=== PATIENT | male | born 1975 | race Caucasian/White ===

== ENCOUNTER 2021-08-26 09:12 | Inpatient (IN) ==
[2021-08-26] MEDS ORDERED: SODIUM CHLORIDE 0.9% 1000ML 1,000 ML IV STA (09:43)
--- NOTE | 2021-08-26 09:48 | Emergency Department Note ---
History of Present Illness General Chief complaint: Referred by Doctor Stated complaint: ABNORMAL BLOOD TEST, ACUTE KIDNEY INJURY Time Seen by Provider: 08/26/21 09:27 Source: patient and old records reviewed (Did review the patient's labs on his phone from his portal from his hospital) Mode of arrival: ambulatory Limitations: no limitations History of Present Illness Maximum Pain Intensity: 4 This patient is a 46-year-old male who has a complex medical history including non-Hodgkin's lymphoma, alcoholism and V. tach, comes in after having an elevated creatinine. He says his he has been in remission from his non- Hodgkin's lymphoma since 1986 and he is on chronic testosterone as I did apparently metastasized to his testes at the time. He had 1 episode of V. tach while he was on chemo but none since then. He does have history of alcohol abuse and went into rehab is been sober for 8 months and denies any relapses. He has multiple specialists and has seen them recently he was diagnosed with liver fibrosis which I think is from radiation he has had a relatively recent upper and lower endoscopy which she says showed benign tumors were otherwise was okay he saw his doctors this week and got routine blood work on Monday and got a call and was told to come to the emergency department. On his blood work his BUN was 29 his creatinine was 2.16 which was up from 1.08 in April. His potassium was 4.9, his sodium was 134 and his CO2 was 31 with a glucose of 97. Total bilirubin 0.4, AST 38, ALT 49. Hemoglobin was 14.5 with a white count of 7.5 and platelets were normal at 275. CK was 420. His iron was low at 9. His ammonia was 55. He denies any headache. He has no chest pain or shortness of breath or cough he feels dizzy at times more like a lightheadedness he says no vertigo or syncope. He is some low back pain and abdominal bloating at times which seems to be off-and-on for him. No blood or melena in his stool. Home Medications Medication Instructions Recorded Confirmed Type clonidine HCl 0.1 mg tablet 0.1 mg PO BID PRN 08/26/21 08/26/21 History desvenlafaxine succinate 25 mg 25 mg PO DAILY 08/26/21 08/26/21 History tablet,extended release 24 hr dextroamphetamine-amphetamine ER 20 mg PO DAILY PRN 08/26/21 08/26/21 History 20 mg 24hr capsule,extend release dextroamphetamine-amphetamine ER 30 mg PO DAILY 08/26/21 08/26/21 History 30 mg 24hr capsule,extend release ergocalciferol (vitamin D2) 1,250 1,250 mcg PO WK 08/26/21 08/26/21 History mcg (50,000 unit) capsule (Vitamin D2) evolocumab 140 mg/mL subcutaneous 140 mg SUBCUT DIRECTED 08/26/21 08/26/21 History pen injector (Jose Francisco Cortes) hydroxyzine HCl 25 mg tablet 25 mg PO TID PRN 08/26/21 08/26/21 History lorazepam 1 mg tablet 1 mg PO DAILY PRN 08/26/21 08/26/21 History losartan 100 mg tablet 100 mg PO DAILY 08/26/21 08/26/21 History meloxicam 15 mg tablet 15 mg PO DAILY 08/26/21 08/26/21 History nebivolol 10 mg tablet (Bystolic) 10 mg PO BID 08/26/21 08/26/21 History rifaximin 550 mg tablet (Xifaxan) 550 mg PO BID 08/26/21 08/26/21 History sulfamethoxazole 800 1 tab PO BID 08/26/21 08/26/21 History mg-trimethoprim 160 mg tablet testosterone 1 % (50 mg/5 gram) 3 packet TOPICAL DAILY 08/26/21 08/26/21 History transdermal gel packet trazodone 100 mg tablet 100 mg PO HS 08/26/21 08/26/21 History Allergies Allergy/AdvReac Type Severity Reaction Status Date / Time No Known Allergies Allergy Verified 08/26/21 14:44 Past Med/Surg History Medical History ADHD Anxiety HLD (hyperlipidemia) HTN (hypertension) Liver fibrosis Low testosterone in male due to radiation for treatment of non-Hodgkin lymphoma Non-Hodgkin lymphoma in remission FRANCO on CPAP Prediabetes Surgical History History of colonoscopy History of elbow surgery History of esophagogastroduodenoscopy Family History Father Pancreatitis Social History Smoking Status: Never smoker Hx Alcohol Use: No Hx Substance Use: No Preferred Language: Mongolian Physician Office Assistant Required: No Beliefs That Will Affect Care: None Current Living Situation: Family Feels Safe at Home: Yes Safety Concerns: Feels Safe At This Time Assistive Devices: CPAP and Glasses Immunizations: Past medical historynon-Hodgkin's lymphoma, in remission since 1986, V. tach, alcoholism in remission for 8 months. Liver fibrosis. Social history he lives in [facility] he is here for work. Review of Systems A total of 10 systems reviewed and were otherwise negative Physical Exam Vital Signs Vital Signs - 24 hr 08/26/21 09:14 08/26/21 09:43 08/26/21 10:14 Temperature 36.3 C L Temperature Source Temporal Artery Scan Pulse Rate 85 78 Pulse Rate from SpO2 Sensor 79 Respiratory Rate 14 14 Blood Pressure 92/58 L Blood Pressure Mean 69 Pulse Oximetry 96 99 94 Oxygen Delivery Method Room Air Room Air Sepsis Recent Fever Within 48 Hours No Sepsis New/Unexplained Change in Mental Status No Sepsis Action Taken by Nursing No Action Required 08/26/21 10:24 08/26/21 10:30 08/26/21 10:40 Temperature Temperature Source Pulse Rate 84 80 76 Pulse Rate from SpO2 Sensor 84 78 Respiratory Rate 19 18 15 Blood Pressure Blood Pressure Mean Pulse Oximetry 97 96 95 Oxygen Delivery Method Sepsis Recent Fever Within 48 Hours Sepsis New/Unexplained Change in Mental Status Sepsis Action Taken by Nursing 08/26/21 10:50 08/26/21 11:00 08/26/21 11:10 Temperature Temperature Source Pulse Rate 79 80 82 Pulse Rate from SpO2 Sensor 79 80 82 Respiratory Rate 17 20 19 Blood Pressure 97/55 L Blood Pressure Mean 69 Pulse Oximetry 94 98 96 Oxygen Delivery Method Sepsis Recent Fever Within 48 Hours Sepsis New/Unexplained Change in Mental Status Sepsis Action Taken by Nursing 08/26/21 11:20 Temperature Temperature Source Pulse Rate 83 Pulse Rate from SpO2 Sensor 84 Respiratory Rate 14 Blood Pressure Blood Pressure Mean Pulse Oximetry 98 Oxygen Delivery Method Sepsis Recent Fever Within 48 Hours Sepsis New/Unexplained Change in Mental Status Sepsis Action Taken by Nursing General: Well developed well nourished not ill-appearing nontoxic middle-age male who appears in no acute distress, breathing comfortably on room air. Normal speech HEENT: Normal cephalic atraumatic. Pupils are equal round and reactive to light. Extraocular movements are intact. Oropharynx is pink with moist mucous membranes. No swelling of the mouth lips or tongue. Neck: Supple with a midline trachea. No meningeal signs or stiffness, no JVD or bruits. No Stridor. Chest: Clear to auscultation bilaterally. No wheezes or rhonchi. No increased work of breathing. Heart: Regular rate and rhythm without murmurs or gallops. Abdomen: Soft nontender, nondistended without rebound guarding or rigidity. Extremities: No cyanosis clubbing or edema. No calf tenderness or assymetry Spine/Back. Non tender to palpation. No CVA tenderness Skin: Good turgor without rashes. Neurologic exam: Cranial nerves two through 12 are intact. Motor and sensation are intact and symmetrical throughout. Course Administered Medications Acetaminophen (Acetaminophen 325 Mg Tab) 650 mg PO Q4H PRN PRN Reason: pain/fever Stop: 09/25/21 14:22 Last Admin: 08/26/21 16:08 Dose: 650 mg Documented by: [id number] Sodium Chloride (Nss 1000ml) 1,000 mls @ 125 mls/hr IV .Q8H CHECO Stop: 09/25/21 11:44 Last Admin: 08/26/21 13:03 Dose: 125 mls/hr Documented by: [id number] Miscellaneous (Testosterone~Order Awaiting Action) 1 ea N/A QS CHECO Stop: 09/25/21 15:59 Last Admin: 08/26/21 15:19 Dose: Not Given Documented by: [id number] Discontinued Medications Sodium Chloride (Nss 1000ml) 1,000 mls @ 999 mls/hr IV .Q1H1M STA Stop: 08/26/21 10:43 Last Infusion: 08/26/21 14:25 Dose: 0 mls/hr Documented by: [id number] Admin: 08/26/21 10:11 Dose: 999 mls/hr Documented by: [id number] Miscellaneous Information (Patient's Allergy Info Needs Entered) 1 ea N/A ONE STA Stop: 08/26/21 14:39 Last Admin: 08/26/21 14:45 Dose: 1 ea Documented by: [id number] Medical Decision Making Differential Diagnosis Renal disease, dehydration, obstructive uropathy, complication from non- Hodgkin's lymphoma or treatment, arrhythmia, electrolyte or metabolic abnormality, infection, liver disease, medication side effect Medical Records Attestation: I reviewed the patient's medical records. Home Medications Current Medication List: was personally reviewed by me Laboratory Data Attestation: I reviewed the patient's lab results. Result diagrams: 08/26/21 10:03 08/26/21 10:03 Lab Results 08/26/21 08/26/21 08/26/21 Range/Units 10:03 10:03 10:03 WBC 8.67 (4.8-10.8) K/uL RBC 5.02 (4.7-6.1) M/uL Hgb 14.3 (14.0-18.0) g/dL Hct 43.4 (42-52) % MCV 86.5 (80-100) fL MCH 28.5 (25-34) pg MCHC 32.9 (32-36) g/dL RDW Std Deviation 44.3 (36.4-46.3) fL RDW Coeff of Roopa 14.0 (11.5-14.5) % Plt Count 281 (130-400) K/uL MPV 8.5 (7.4-10.4) fL Immature Gran % (Auto) 0.1 % Neut % (Auto) 54.9 % Lymph % (Auto) 32.3 % [place] % (Auto) 10.7 % Eos % (Auto) 1.7 % Baso % (Auto) 0.3 % Neut # (Auto) 4.75 (1.4-6.5) K/uL Lymph # (Auto) 2.80 (1.2-3.4) K/uL [place] # (Auto) 0.93 H (0.11-0.59) K/uL Eos # (Auto) 0.15 (0-0.5) K/uL Baso # (Auto) 0.03 (0-0.2) K/uL Immature Gran # (Auto) 0.01 (0.00-0.02) K/uL PT (9.0-12.0) Seconds INR (0.9-1.1) APTT (21.0-31.0) Seconds PTT Ratio Sodium 134 L (136-145) mmol/L Potassium 5.1 (3.5-5.1) mmol/L Chloride 98 (98-107) mmol/L Carbon Dioxide 29 (21-32) mmol/L Anion Gap 7 (3-11) BUN 34 H (6-23) mg/dl Creatinine 2.97 H (0.6-1.4) mg/dl Est Cr Clr Drug Dosing 36.2 ml/min Est GFR ( Amer) 28.3 ml/min Est GFR (Non-Af Amer) 24.4 ml/min BUN/Creatinine Ratio 11.4 (10-20) Glucose 91 (70-99(Fasting)) mg/dl Lactate 1.0 (0.4-2.0) mmol/L Calcium 9.5 (8.5-10.1) mg/dl Total Bilirubin 0.4 (0.2-1.0) mg/dl AST 37 (13-39) U/L ALT 43 (7-52) U/L Alkaline Phosphatase 31 L (34-104) U/L Ammonia (18-72) umol/L Total Creatine Kinase 298 H (30-223) U/L Troponin I High Sens 7.7 (0-20) pg/ml Total Protein 7.2 (6.0-8.3) gm/dl Albumin 4.6 (3.4-5.0) gm/dl Globulin 2.6 (2.5-4.0) gm/dl Albumin/Globulin Ratio 1.8 (0.9-2) Lipase 72 (11-82) U/L Procalcitonin (0-0.5) ng/ml Urine Color Urine Appearance (Clear) Urine pH (4.5-7.5) Ur Specific [place] (1.000-1.030) Urine Protein (Negative) Urine Glucose (UA) (Negative) Urine Ketones (Negative) Urine Blood (Negative) Urine Nitrite (Negative) Urine Bilirubin (Negative) Urine Urobilinogen (Negative) Ur Leukocyte Esterase (Negative) Urine WBC (Auto) (0-5) /hpf Urine RBC (Auto) (0-4) /hpf U Hyaline Cast (Auto) (0-5) /lpf U Epithel Cells (Auto) (0-5) /lpf Urine Bacteria (Auto) (Negative) Ur Renal Epithelial Cell Urine Mucus (None Prsent) SARS-CoV-2, RNA, NAAT (NEGATIVE) 06/16/22 06/16/22 06/16/22 Range/Units 10:03 10:03 10:03 WBC (4.8-10.8) K/uL RBC (4.7-6.1) M/uL Hgb (14.0-18.0) g/dL Hct (42-52) % MCV (80-100) fL MCH (25-34) pg MCHC (32-36) g/dL RDW Std Deviation (36.4-46.3) fL RDW Coeff of Roopa (11.5-14.5) % Plt Count (130-400) K/uL MPV (7.4-10.4) fL Immature Gran % (Auto) % Neut % (Auto) % Lymph % (Auto) % [place] % (Auto) % Eos % (Auto) % Baso % (Auto) % Neut # (Auto) (1.4-6.5) K/uL Lymph # (Auto) (1.2-3.4) K/uL [place] # (Auto) (0.11-0.59) K/uL Eos # (Auto) (0-0.5) K/uL Baso # (Auto) (0-0.2) K/uL Immature Gran # (Auto) (0.00-0.02) K/uL PT 10.7 (9.0-12.0) Seconds INR 1.0 (0.9-1.1) APTT 29.4 (21.0-31.0) Seconds PTT Ratio 1.1 Sodium (136-145) mmol/L Potassium (3.5-5.1) mmol/L Chloride (98-107) mmol/L Carbon Dioxide (21-32) mmol/L Anion Gap (3-11) BUN (6-23) mg/dl Creatinine (0.6-1.4) mg/dl Est Cr Clr Drug Dosing ml/min Est GFR ( Amer) ml/min Est GFR (Non-Af Amer) ml/min BUN/Creatinine Ratio (10-20) Glucose (70-99(Fasting)) mg/dl Lactate (0.4-2.0) mmol/L Calcium (8.5-10.1) mg/dl Total Bilirubin (0.2-1.0) mg/dl AST (13-39) U/L ALT (7-52) U/L Alkaline Phosphatase (34-104) U/L Ammonia 43.0 (18-72) umol/L Total Creatine Kinase (30-223) U/L Troponin I High Sens (0-20) pg/ml Total Protein (6.0-8.3) gm/dl Albumin (3.4-5.0) gm/dl Globulin (2.5-4.0) gm/dl Albumin/Globulin Ratio (0.9-2) Lipase (11-82) U/L Procalcitonin 0.06 (0-0.5) ng/ml Urine Color Urine Appearance (Clear) Urine pH (4.5-7.5) Ur Specific [place] (1.000-1.030) Urine Protein (Negative) Urine Glucose (UA) (Negative) Urine Ketones (Negative) Urine Blood (Negative) Urine Nitrite (Negative) Urine Bilirubin (Negative) Urine Urobilinogen (Negative) Ur Leukocyte Esterase (Negative) Urine WBC (Auto) (0-5) /hpf Urine RBC (Auto) (0-4) /hpf U Hyaline Cast (Auto) (0-5) /lpf U Epithel Cells (Auto) (0-5) /lpf Urine Bacteria (Auto) (Negative) Ur Renal Epithelial Cell Urine Mucus (None Prsent) SARS-CoV-2, RNA, NAAT (NEGATIVE) 08/26/21 08/26/21 Range/Units 10:06 11:18 WBC (4.8-10.8) K/uL RBC (4.7-6.1) M/uL Hgb (14.0-18.0) g/dL Hct (42-52) % MCV (80-100) fL MCH (25-34) pg MCHC (32-36) g/dL RDW Std Deviation (36.4-46.3) fL RDW Coeff of Roopa (11.5-14.5) % Plt Count (130-400) K/uL MPV (7.4-10.4) fL Immature Gran % (Auto) % Neut % (Auto) % Lymph % (Auto) % [place] % (Auto) % Eos % (Auto) % Baso % (Auto) % Neut # (Auto) (1.4-6.5) K/uL Lymph # (Auto) (1.2-3.4) K/uL [place] # (Auto) (0.11-0.59) K/uL Eos # (Auto) (0-0.5) K/uL Baso # (Auto) (0-0.2) K/uL Immature Gran # (Auto) (0.00-0.02) K/uL PT (9.0-12.0) Seconds INR (0.9-1.1) APTT (21.0-31.0) Seconds PTT Ratio Sodium (136-145) mmol/L Potassium (3.5-5.1) mmol/L Chloride (98-107) mmol/L Carbon Dioxide (21-32) mmol/L Anion Gap (3-11) BUN (6-23) mg/dl Creatinine (0.6-1.4) mg/dl Est Cr Clr Drug Dosing ml/min Est GFR ( Amer) ml/min Est GFR (Non-Af Amer) ml/min BUN/Creatinine Ratio (10-20) Glucose (70-99(Fasting)) mg/dl Lactate (0.4-2.0) mmol/L Calcium (8.5-10.1) mg/dl Total Bilirubin (0.2-1.0) mg/dl AST (13-39) U/L ALT (7-52) U/L Alkaline Phosphatase (34-104) U/L Ammonia (18-72) umol/L Total Creatine Kinase (30-223) U/L Troponin I High Sens (0-20) pg/ml Total Protein (6.0-8.3) gm/dl Albumin (3.4-5.0) gm/dl Globulin (2.5-4.0) gm/dl Albumin/Globulin Ratio (0.9-2) Lipase (11-82) U/L Procalcitonin (0-0.5) ng/ml Urine Color Dark Yellow Urine Appearance Cloudy A (Clear) Urine pH 5.0 (4.5-7.5) Ur Specific [place] 1.019 (1.000-1.030) Urine Protein 2+ H (Negative) Urine Glucose (UA) Negative (Negative) Urine Ketones Trace H (Negative) Urine Blood Negative (Negative) Urine Nitrite Negative (Negative) Urine Bilirubin Negative (Negative) Urine Urobilinogen Negative (Negative) Ur Leukocyte Esterase Trace H (Negative) Urine WBC (Auto) 10-30 H (0-5) /hpf Urine RBC (Auto) 0-4 (0-4) /hpf U Hyaline Cast (Auto) >30 H (0-5) /lpf U Epithel Cells (Auto) >30 H (0-5) /lpf Urine Bacteria (Auto) 1+ H (Negative) Ur Renal Epithelial Cell Not Reportable Urine Mucus Present A (None Prsent) SARS-CoV-2, RNA, NAAT NEGATIVE (NEGATIVE) Imaging Data Radiologist's Impression: Abdomen/Pelvis CT 08/26/21 09:43 CT OF THE ABDOMEN AND PELVIS WITHOUT CONTRAST CLINICAL HISTORY: Bilateral flank and back pain, creatinine increase COMPARISON STUDY: No previous studies for comparison. TECHNIQUE: Axial images of the abdomen and pelvis were obtained without IV contrast. Images were reviewed in the axial, sagittal, and coronal planes. Automated exposure control was utilized for the study. A dose lowering technique was utilized adhering to the principles of ALARA. FINDINGS: Note is made of several irregular subpleural densities within the ri ght lower lobe. Several of these are partially calcified. The largest measures 1.5 cm. There are several pleural calcifications within the right lower hemithorax. No pneumatosis, free air or portal venous gas is present. No renal, ureteral or bladder calculi are present. No hydronephrosis or hydroureter is noted. There are multiple small bilateral renal lesions. These are suboptimally assessed on this unenhanced exam but measuring water attenuation and probably reflect cysts. Unenhanced images of the liver, spleen, adrenal glands and pancreas are unremarkable. There is a splenule. There is no biliary or pancreatic ductal dilatation. Liver contour is slightly lobulated. Colonic diverticulosis is noted without evidence for acute diverticulitis. There is no evidence for a bowel obstruction. The appendix is normal. Several hemangiomas within the spine are noted. No acute fracture or suspicious lesion within the visualized skeletal structures. Peripherally calcified focus within the right h emiscrotum is partially imaged. This is benign IMPRESSION: 1. No urinary calculi or hydronephrosis. 2. Multiple small bilateral renal lesions. These are suboptimally assessed on this unenhanced exam but measure near water attenuation probably reflect cysts. 3. Multiple subpleural irregular densities within the right lower lobe, several of which are partially calcified. These are indeterminate and favor scarring or a resolving infectious/granulomatous process. However, a follow-up chest CT in 6 months to ensure stability is recommended. 4. Colonic diverticulosis. No evidence for acute diverticulitis. ACT 112: Negative or not required by law. Electronically signed by: Norbert Llamas M.D. 08/26/2021 10:37 AM ECG Data Attestation: I personally reviewed and interpreted this ECG as follows: Indication: + weakness Rate (beats per minute): 74 Rhythm: + normal sinus ECG Intervals/blocks: + Normal QRS, + Normal QT and + Normal CT ECG Marissa: + Normal ECG ST segments: + Nonspecific ST abnormalities ECG Findings: + PACs and + PVCs Comparison ECG Date: no prior available MDM Narrative This patient comes in as described above. He was placed in room C 11. Is here for treatment evaluation of abnormal labs on Monday where he had some renal insufficiency. He says he has been keeping up with his fluids. he looks well his initial blood pressure was mildly low . He was given 1 L IVnormal saline bolus it may be that this is prerenal. The rest of his Monday labs looked okay with exception of a low ferritin. I did order IV access here multiple blood testing EKG and a noncontrast CAT scan of his abdomen to rule out obstructive uropathy and other causes for symptoms. He was reassessed frequently. He looks well and his EKG does not show any ischemic changes or ectopy. CAT scan shows some chronic findings but no acute obstructive uropathy or acute findings. Creatinine is elevated at 2.97 which is up from his last 1. Potassium is not elevated. He has no fever or white count to suggest infection. Addition his l actic acid and procalcitonin are also negative. I do not think this is sepsis and there is certainly no source of infection at this point. His elevated renal function may be related to hydration and prerenal component and may also be related to medications that he is on. There may be other contributing factors. He is also on blood pressure medications and this could be because his blood pressure to be on the low side and he may need to hold these as well. I have consulted the [facility] hospitalist to see him in the ER for inpatient treatment and evaluation. Continuous environmental monitoring technician: Orders placed in the EMR for continuous cardiac monitoring. Upon my interpretation, the patient was noted to be in normal sinus rhythm with a rate of 75 Impression & Plan JASON (acute kidney injury), Liver fibrosis, Non-Hodgkin lymphoma in remission, Hypotension Discharge Plan Visit Data Chief Complaint: Referred by Doctor Stated Complaint: ABNORMAL BLOOD TEST, ACUTE KIDNEY INJURY ED Provider: Felipe Vasquez Discharge Problem: JASON (acute kidney injury), Liver fibrosis, Non-Hodgkin lymphoma in remission, Hypotension Patient Disposition: Admitted As Inpatient Discharge Instructions Interventions: ED Discharge Assessment Last Done: 08/26/21 14:01 Discharge Problem: Hypotension Qualifiers: Hypotension type: unspecified hypotension type Qualified Code(s): I95.9 - Hypotension, unspecified
[2021-08-26 10:30] LABS: Hematocrit (blood only) 43.4 % (42-52); Hemoglobin 14.3 g/dL (14.0-18.0); Mean Corpuscular Hemoglobin 28.5 pg (25-34); Mean Corpuscular Hgb Conc 32.9 g/dL (32-36); Mean Corpuscular Volume 86.5 fL (80-100); Mean Platelet Volume 8.5 fL (7.4-10.4); Platelet Count 281 K/uL (130-400); RDW Standard Deviation 44.3 fL (36.4-46.3); Red Blood Count 5.02 M/uL (4.7-6.1); White Blood Count 8.67 K/uL (4.8-10.8)
[2021-08-26 10:35] LABS: Appearance Urine Cloudy (Clear); Bilirubin Urine Negative (Negative); Blood Urine Negative (Negative); Color Urine Dark Yellow; Epithelial Cell Urine Auto >30 /lpf (0-5); Glucose Urine UA Negative (Negative); Ketones Urine Trace (Negative); Leukocyte Esterase Urine Trace (Negative); Nitrite Urine Negative (Negative); Protein Urine 2+ (Negative); RBC Urine Automated 0-4 /hpf (0-4); Specific Gravity Urine 1.019 (1.000-1.030); Urobilinogen Urine Negative (Negative)
--- NOTE | 2021-08-26 10:39 | CT Scan Report ---
CT OF THE ABDOMEN AND PELVIS WITHOUT CONTRAST CLINICAL HISTORY: Bilateral flank and back pain, creatinine increase COMPARISON STUDY: No previous studies for comparison. TECHNIQUE: Axial images of the abdomen and pelvis were obtained without IV contrast. Images were revi ewed in the axial, sagittal, and coronal planes. Automated exposure control was utilized for the jimbo dy. A dose lowering technique was utilized adhering to the principles of ALARA. FINDINGS: Note is made of several irregular subpleural densities within the right lower lobe. Several of these are partially calcified. The largest measures 1.5 cm. There are several pleural calcificati ons within the right lower hemithorax. No pneumatosis, free air or portal venous gas is present. No r enal, ureteral or bladder calculi are present. No hydronephrosis or hydroureter is noted. There are m ultiple small bilateral renal lesions. These are suboptimally assessed on this unenhanced exam but me asuring water attenuation and probably reflect cysts. Unenhanced images of the liver, spleen, adrenal glands and pancreas are unremarkable. There is a splenule. There is no biliary or pancreatic ductal dilatation. Liver contour is slightly lobulated. Colonic diverticulosis is noted without evidence for acute diverticulitis. There is no evidence for a bowel obstruction. The appendix is normal. Several hemangiomas within the spine are noted. No acute fracture or suspicious lesion within the visualized skeletal structures. Peripherally calcified focus within the right hemiscrotum is partially imaged. T his is benign IMPRESSION: 1. No urinary calculi or hydronephrosis. 2. Multiple small bilateral renal lesions. These are suboptimally assessed on this unenhanced exam bu t measure near water attenuation probably reflect cysts. 3. Multiple subpleural irregular densities within the right lower lobe, several of which are partiall y calcified. These are indeterminate and favor scarring or a resolving infectious/granulomatous proce ss. However, a follow-up chest CT in 6 months to ensure stability is recommended. 4. Colonic diverticulosis. No evidence for acute diverticulitis. ACT 112: Negative or not required by law. Electronically signed by: Norbert Llamas M.D. 08/26/2021 10:37 AM
[2021-08-26 10:43] LABS: Albumin Globulin Ratio 1.8 (0.9-2); Albumin Level 4.6 gm/dl (3.4-5.0); BUN Creatinine Ratio 11.4 (10-20); Bilirubin,Total 0.4 mg/dl (0.2-1.0); Calcium 9.5 mg/dl (8.5-10.1); Creatinine Clr Calc Pharmacy 36.2 ml/min; Est GFR (African American) 28.3 ml/min; Est GFR (Non-African American) 24.4 ml/min; Globulin 2.6 gm/dl (2.5-4.0); Partial Thromboplastin Ratio 1.1; Partial Thromboplastin Time 29.4 Seconds (21.0-31.0); Potassium 5.1 mmol/L (3.5-5.1); Prothrombin Time 10.7 Seconds (9.0-12.0); Total Protein 7.2 gm/dl (6.0-8.3)
[2021-08-26 10:47] LABS: Troponin I High Sensitivity 7.7 pg/ml (0-20)
[2021-08-26 10:53] LABS: Basophils # (auto) 0.03 K/uL (0-0.2); Basophils % (auto) 0.3 %; Eosinophils # (auto) 0.15 K/uL (0-0.5); Eosinophils % (auto) 1.7 %; Immature Granulocytes # (auto) 0.01 K/uL (0.00-0.02); Immature Granulocytes % (auto) 0.1 %; Lymphocytes % (auto) 32.3 %; Monocytes # (auto) 0.93 K/uL (0.11-0.59); Monocytes % (auto) 10.7 %; Neutrophils # (auto) 4.75 K/uL (1.4-6.5); Neutrophils % (auto) 54.9 %
[2021-08-26 11:04] LABS: Cast Urine Automated >30 /lpf (0-5); Mucus Urine Present (None Prsent)
[2021-08-26 11:06] LABS: Bacteria Urine Automated 1+ (Negative)
--- NOTE | 2021-08-26 12:08 | Communication Note ---
Date of Service: August 26, 2021 History and physical exam performed by me. History notable for 46-year-old man with history of NHL treated in remission per patient, liver fibrosis, previous alcohol abuse been sober for 8 months, prediabetes, HTN, HLD who presents to the hospital after called by has doctors to come to the ER for abnormal labs. Patient had blood work done 08/24/2021 and was noted to have creatinine of 2.1. He is currently in the area for work, lives in [facility]. Was called by 's office to go to the ER for abnormal labs. Reports that he started taking Bactrim just over a week ago for some rash that is improving. Review of system notable for dizziness over the past few days. Reports chronic abdominal bloating that increases over the day. On exam, General: Obese, no acute distress and not ill appearing Eyes: PERRL, conjunctivae normal, not pale, anicteric sclerae, EOM intact bilaterally ENMT: External ear and nose normal, oropharynx normal Respiratory: Normal respiratory effort, no respiratory distress, lungs clear to auscultation, no crackles and no wheezes Cardiovascular: RRR S1 S2 Gastrointestinal (Abdomen): Abdomen is mildly distended, soft, non-tender to palpation, no guarding, no palpable hepatosplenomegaly, normal bowel sounds Musculoskeletal: No cyanosis or clubbing, all extremities motor strength 5/5 Genitourinary: No CVA tenderness Skin: Few erythematous rash on legs Neurologic: Alert and oriented x 3, No focal weakness, sensation grossly intact Psychiatric: Alert and oriented x 3, euthymic affect, no depressed affect Labs notable for creatinine of 2.97 (was 1 in 04/2021 per records on patient's phone), CK of 298, Acute kidney injury Hypotension JASON could be related to hypotension versus falsely elevated creatinine from Bactrim use. Hold losartan antihypertensive as patient is currently hypotensive Stop Bactrim Continue IV fluids Monitor renal function If renal function does not improve, get lodge attendant evaluation. Continue other home meds including rifaximin Agree with other plans as detailed by Elise MORENO
--- NOTE | 2021-08-26 12:13 | History & Physical Report ---
Date of Service August 26, 2021 Assessment & Plan (1) JASON (acute kidney injury): Plan: Admit to [facility] with telemetry Patient presenting by referral of outpatient provider for evaluation of abnormal renal functions. Patient is from the [place] area and is visiting here for work. In the ED, creatinine found to be 2.97. Patient shared his patient portal with us and showed creatinine 2.16 on 08/24/21 and creatinine 1.0 04/2021 JASON likely due to multiple nephrotoxic medications (Bactrim, meloxicam, losartan). Patient also noted to be hypotensive which may be contributing to JASON as well. Hold above mentioned medications, continue IVF Monitor renal functions, low threshold for nephrology consult if not improving (2) HTN (hypertension): Plan: Patient currently borderline hypotensive with SBP's in the 90s Hold home antihypertensives (clonidine, Bystolic, losartan) (3) Liver fibrosis: Plan: History of alcohol abuse, has been sober for 8 months Was told liver fibrosis was due to alcohol use and also previous radiation for treatment of non-Hodgkin's lymphoma Continue Xifaxan (4) HLD (hyperlipidemia): Plan: On Repatha (5) Non-Hodgkin lymphoma in remission: Plan: Remote history of, in remission History of testicular involvement, on testosterone replacement (6) FRANCO on CPAP: Plan: CPAP as per home settings (7) ADHD: (8) Anxiety: Plan: Continue home meds (9) DVT prophylaxis: Plan: SCDs History of Present Illness Chief Complaint: Referred by doctor for abnormal kidney functions Primary Care Provider: Avila Sanford 46 year old male with PMH remote hx non Hodgkin lymphoma s/p chemo radiation, prior alochol abuse (sober for 8 months), HTN, liver fibrosis, ADHD, anxiety, and other problems listed below who presents to the ED by referral of his doctor for evaluation of abnormal kidney function. Patient lives in the [place] area and is visiting [place] for work. He states that he had outpatient blood work done on 08/24 and received a phone call today to come to the ED for evaluation of abnormal kidney functions. 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 Over the past few days patient notes he has been very thirsty and has been having intermittent lightheadedness. Patient also notes some constipation and abdominal bloating. While in the ED developed some minor lower abdominal pain. Denies nausea, vomiting, or diarrhea. No BRBPR or dark tarry stools. Denies fever and chills. No chest pain or shortness of breath. Report urinary frequency and dark colored urine. No dysuria. In the ED, labs show creat 2.97. BPs borderline low with SBPs in the 90s. Patient was given IVF. Allergies Allergy/AdvReac Type Severity Reaction Status Date / Time No Known Allergies Allergy Verified 08/26/21 14:44 Home Medications Medication Instructions Recorded Confirmed Type clonidine HCl 0.1 mg tablet 0.1 mg PO BID PRN 08/26/21 08/26/21 History desvenlafaxine succinate 25 mg 25 mg PO DAILY 08/26/21 08/26/21 History tablet,extended release 24 hr dextroamphetamine-amphetamine ER 20 mg PO DAILY PRN 08/26/21 08/26/21 History 20 mg 24hr capsule,extend release dextroamphetamine-amphetamine ER 30 mg PO DAILY 08/26/21 08/26/21 History 30 mg 24hr capsule,extend release ergocalciferol (vitamin D2) 1,250 1,250 mcg PO WK 08/26/21 08/26/21 History mcg (50,000 unit) capsule (Vitamin D2) evolocumab 140 mg/mL subcutaneous 140 mg SUBCUT DIRECTED 08/26/21 08/26/21 History pen injector (Jose Francisco Cortes) hydroxyzine HCl 25 mg tablet 25 mg PO TID PRN 08/26/21 08/26/21 History lorazepam 1 mg tablet 1 mg PO DAILY PRN 08/26/21 08/26/21 History losartan 100 mg tablet 100 mg PO DAILY 08/26/21 08/26/21 History meloxicam 15 mg tablet 15 mg PO DAILY 08/26/21 08/26/21 History nebivolol 10 mg tablet (Bystolic) 10 mg PO BID 08/26/21 08/26/21 History rifaximin 550 mg tablet (Xifaxan) 550 mg PO BID 08/26/21 08/26/21 History sulfamethoxazole 800 1 tab PO BID 08/26/21 08/26/21 History mg-trimethoprim 160 mg tablet testosterone 1 % (50 mg/5 gram) 3 packet TOPICAL DAILY 08/26/21 08/26/21 History transdermal gel packet trazodone 100 mg tablet 100 mg PO HS 08/26/21 08/26/21 History Past Med/Surg History Medical History ADHD Anxiety HLD (hyperlipidemia) HTN (hypertension) Liver fibrosis Low testosterone in male due to radiation for treatment of non-Hodgkin lymphoma Non-Hodgkin lymphoma in remission FRANCO on CPAP Prediabetes Surgical History History of colonoscopy History of elbow surgery History of esophagogastroduodenoscopy Family History Father Pancreatitis Social History Smoking Status: Never smoker Hx Alcohol Use: No Hx Substance Use: No Preferred Language: [place]ij[place] [employer] 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 Mckeon's addendum for physical exam Results & Data Results & Data ([facility]) Vital Signs (Past 12 Hours) Vital Signs Temp Pulse Resp BP Pulse Ox 08/26/21 11:20 83 14 98 08/26/21 11:10 82 19 96 08/26/21 11:00 80 20 97/55 L 98 08/26/21 10:50 79 17 94 08/26/21 10:40 76 15 95 08/26/21 10:30 80 18 96 08/26/21 10:24 84 19 97 08/26/21 10:14 78 14 94 08/26/21 09:43 99 08/26/21 09:14 36.3 C L 85 14 92/58 L 96 Laboratory Results Short CBC 08/26/21 Range/Units 10:03 WBC 8.67 (4.8-10.8) K/uL Hgb 14.3 (14.0-18.0) g/dL Hct 43.4 (42-52) % Plt Count 281 (130-400) K/uL BMP 08/26/21 10:03 Sodium 134 L Potassium 5.1 Chloride 98 Carbon Dioxide 29 BUN 34 H Creatinine 2.97 H Glucose 91 Calcium 9.5 Cardiac Enzymes 08/26/21 Range/Units 10:03 Total Creatine Kinase 298 H (30-223) U/L Liver Function 08/26/21 Range/Units 10:03 Total Bilirubin 0.4 (0.2-1.0) mg/dl AST 37 (13-39) U/L ALT 43 (7-52) U/L Alkaline Phosphatase 31 L (34-104) U/L Albumin 4.6 (3.4-5.0) gm/dl Urine 08/26/21 Range/Units 10:06 Urine Color Dark Yellow Urine Appearance Cloudy A (Clear) Urine pH 5.0 (4.5-7.5) Ur Specific [place] 1.019 (1.000-1.030) Urine Protein 2+ H (Negative) Urine Glucose (UA) Negative (Negative) Diagnostic Findings Abdomen/Pelvis CT 08/26/21 09:43 CT OF THE ABDOMEN AND PELVIS WITHOUT CONTRAST CLINICAL HISTORY: Bilateral flank and back pain, creatinine increase COMPARISON STUDY: No previous studies for comparison. TECHNIQUE: Axial images of the abdomen and pelvis were obtained without IV contrast. Images were reviewed in the axial, sagittal, and coronal planes. Automated exposure control was utilized for the study. A dose lowering technique was utilized adhering to the principles of ALARA. FINDINGS: Note is made of several irregular subpleural densities within the right lower lobe. Several of these are partially calcified. The largest measures 1.5 cm. There are several pleural calcifications within the right lower hemithorax. No pneumatosis, free air or portal venous gas is present. No renal, ureteral or bladder calculi are present. No hydronephrosis or hydroureter is noted. There are multiple small bilateral renal lesions. These are suboptimally assessed on this unenhanced exam but measuring water attenuation and probably reflect cysts. Unenhanced images of the liver, spleen, adrenal glands and pancreas are unremarkable. There is a splenule. There is no biliary or pancreatic ductal dilatation. Liver contour is slightly lobulated. Colonic diverticulosis is noted without evidence for acute diverticulitis. There is no evidence for a bowel obstruction. The appendix is normal. Several hemangiomas within the spine are noted. No acute fracture or suspicious lesion within the visualized skeletal structures. Peripherally calcified focus within the right hemiscrotum is partially imaged. This is benign IMPRESSION: 1. No urinary calculi or hydronephrosis. 2. Multiple small bilateral renal lesions. These are suboptimally assessed on this unenhanced exam but measure near water attenuation probably reflect cysts. 3. Multiple subpleural irregular densities within the right lower lobe, several of which are partially calcified. These are indeterminate and favor scarring or a resolving infectious/granulomatous process. However, a follow-up chest CT in 6 months to ensure stability is recommended. 4. Colonic diverticulosis. No evidence for acute diverticulitis. ACT 112: Negative or not required by law. Electronically signed by: Norbert Llamas M.D. 08/26/2021 10:37 AM Code Status & VTE Plan VTE Prophylaxis Plan VTE Prophylaxis will be ordered: Yes Supervising Physician Co-Signing Physician Notes Date of Service: August 26, 2021 History and physical exam performed by me. History notable for 46-year-old man with history of NHL treated in remission per patient, liver fibrosis, previous alcohol abuse been sober for 8 months, prediabetes, HTN, HLD who presents to the hospital after called by has doctors to come to the ER for abnormal labs. Patient had blood work done 08/24/2021 and was noted to have creatinine of 2.1. He is currently in the area for work, lives in [facility]. Was called by 's office to go to the ER for abnormal labs. Reports that he started taking Bactrim just over a week ago for some rash that is improving. Review of system notable for dizziness over the past few days. Reports chronic abdominal bloating that increases over the day. On exam, General: Obese, no acute distress and not ill appearing Eyes: PERRL, conjunctivae normal, not pale, anicteric sclerae, EOM intact bilaterally ENMT: External ear and nose normal, oropharynx normal Respiratory: Normal respiratory effort, no respiratory distress, lungs clear to auscultation, no crackles and no wheezes Cardiovascular: RRR S1 S2 Gastrointestinal (Abdomen): Abdomen is mildly distended, soft, non-tender to palpation, no guarding, no palpable hepatosplenomegaly, normal bowel sounds Musculoskeletal: No cyanosis or clubbing, all extremities motor strength 5/5 Genitourinary: No CVA tenderness Skin: Few erythematous rash on legs Neurologic: Alert and oriented x 3, No focal weakness, sensation grossly intact Psychiatric: Alert and oriented x 3, euthymic affect, no depressed affect Labs notable for creatinine of 2.97 (was 1 in 04/2021 per records on patient's phone), CK of 298, Acute kidney injury Hypotension JASON could be related to hypotension vs meds vs falsely elevated creatinine from Bactrim use. 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 Continue other home meds including rifaximin Agree with other plans as detailed by Elise MORENO
[2021-08-26 12:41] LABS: Appearance Urine Clear (Clear); Bilirubin Urine Negative (Negative); Blood Urine Negative (Negative); Color Urine Yellow; Epithelial Cell Urine Auto >30 /lpf (0-5); Glucose Urine UA Negative (Negative); Ketones Urine Negative (Negative); Leukocyte Esterase Urine Negative (Negative); Nitrite Urine Negative (Negative); Protein Urine Trace (Negative); RBC Urine Automated 0-4 /hpf (0-4); Specific Gravity Urine 1.018 (1.000-1.030); Urobilinogen Urine Negative (Negative); pH Urine 5.5 (4.5-7.5)
[2021-08-26] MEDS: SODIUM CHLORIDE 0.9% 1000ML 1,000 ML IV SCH ×2 (13:03→20:06)
[2021-08-26 13:41] LABS: Bacteria Urine Automated 1+ (Negative)
[2021-08-26] MEDS ORDERED: LORazepam 1 MG TAB PO PRN (14:23)
[2021-08-26] MEDS ORDERED: ACETAMINOPHEN 325 MG TAB PO PRN (14:23)
[2021-08-26] MEDS ORDERED: Patient's ALLERGY Info needs ENTERED STA (14:38)
[2021-08-26] MEDS: TESTOSTERONE~ORDER AWAITING ACTION SCH ×2 (15:19→23:41)
--- NOTE | 2021-08-26 18:23 | Electrocardiogram Report ---
Test Reason : Blood Pressure : / mmHG Vent. Rate : 074 BPM Atrial Rate : 074 BPM P-R Int : 192 ms QRS Dur : 096 ms QT Int : 372 ms P-R-T Axes : 032 056 064 degrees QTc Int : 412 ms Normal sinus rhythm Possible Left atrial enlargement Borderline ECG No previous ECGs available Confirmed by Dino Hoyos ([id number]) on 08/26/2021 6:23:12 PM Referred By: SELF Confirmed By:Reyes Hoyos
[2021-08-26] MEDS: rifAXIMin 550 MG TABLET PO SCH (20:42)
[2021-08-26] MEDS ORDERED: traZODone HCL 100 MG TAB PO SCH (21:00)
[2021-08-26] MEDS ORDERED: POLYETHYLENE (MIRALAX) 17 GM PACK PO PRN (22:07)
[2021-08-26] MEDS: MoRPHine SULFATE 2 MG/ML CARP IV PRN (23:15)
[2021-08-27] MEDS: MoRPHine SULFATE 2 MG/ML CARP IV PRN (04:05)
[2021-08-27] MEDS: SODIUM CHLORIDE 0.9% 1000ML 1,000 ML IV SCH (04:30)
[2021-08-27 08:01] LABS: Hematocrit (blood only) 42.5 % (42-52); Hemoglobin 13.4 g/dL (14.0-18.0); Mean Corpuscular Hemoglobin 27.2 pg (25-34); Mean Corpuscular Hgb Conc 31.5 g/dL (32-36); Mean Corpuscular Volume 86.4 fL (80-100); Mean Platelet Volume 8.7 fL (7.4-10.4); Platelet Count 263 K/uL (130-400); RDW Coefficient of Variation 14.1 % (11.5-14.5); RDW Standard Deviation 44.3 fL (36.4-46.3); Red Blood Count 4.92 M/uL (4.7-6.1); White Blood Count 6.44 K/uL (4.8-10.8)
[2021-08-27 08:53] LABS: BUN Creatinine Ratio 14.9 (10-20); Calcium 8.6 mg/dl (8.5-10.1); Creatinine Clr Calc Pharmacy 69.9 ml/min; Est GFR (African American) 62.7 ml/min; Est GFR (Non-African American) 54.1 ml/min; Potassium 5.3 mmol/L (3.5-5.1)
[2021-08-27] MEDS ORDERED: DEXTROAMPHETAMINE/AMPHETAMINE ER 10 MG CAP PO SCH (09:00)
[2021-08-27] MEDS: rifAXIMin 550 MG TABLET PO SCH (09:45)
[2021-08-27] MEDS: TESTOSTERONE~ORDER AWAITING ACTION SCH (09:46)
[2021-08-27] MEDS ORDERED: bisacodyL 5 MG TABEC PO ONE (11:04)
--- NOTE | 2021-08-27 13:32 | Discharge Summary ---
Date of Service August 27, 2021 Admission HPI Per Admitting Provider 46 year old male with PMH remote hx non Hodgkin lymphoma s/p chemo radiation, prior alochol abuse (sober for 8 months), HTN, liver fibrosis, ADHD, anxiety, and other problems listed below who presents to the ED by referral of his doctor for evaluation of abnormal kidney function. Patient lives in the [place] area and is visiting [place] for work. He states that he had outpatient blood work done on 08/24 and received a phone call today to come to the ED for evaluation of abnormal kidney functions. 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 Over the past few days patient notes he has been very thirsty and has been having intermittent lightheadedness. Patient also notes some constipation and abdominal bloating. While in the ED developed some minor lower abdominal pain. Denies nausea, vomiting, or diarrhea. No BRBPR or dark tarry stools. Denies fever and chills. No chest pain or shortness of breath. Report urinary frequency and dark colored urine. No dysuria. In the ED, labs show creat 2.97. BPs borderline low with SBPs in the 90s. Patient was given IVF. Discharge Data Allergies Allergy/AdvReac Type Severity Reaction Status Date / Time No Known Allergies Allergy Verified 08/26/21 14:44 Consultations 08/26/21 11:03 ED Decision to Admit Stat Ordered Studies 08/26/21 09:43 CT abd pelvis wo con Stat Hospital Course (1) JASON (acute kidney injury): Admit to [facility] with telemetry Patient presenting by referral of outpatient provider for evaluation of abnormal renal functions. Patient is from the [place] area and is visiting here for work. In the ED, creatinine found to be 2.97. Patient shared his patient portal with us and showed creatinine 2.16 on 08/24/21 and creatinine 1.0 04/2021 JASON likely due to multiple nephrotoxic medications (Bactrim, meloxicam, losartan). Patient also noted to be hypotensive which may be contributing to JASON as well. Hold above mentioned medications, continue IVF Monitor renal functions, low threshold for nephrology consult if not improving (2) HTN (hypertension): Patient currently borderline hypotensive with SBP's in the 90s Hold home antihypertensives (clonidine, Bystolic, losartan) (3) Liver fibrosis: History of alcohol abuse, has been sober for 8 months Was told liver fibrosis was due to alcohol use and also previous radiation for treatment of non-Hodgkin's lymphoma Continue Xifaxan (4) HLD (hyperlipidemia): On Repatha (5) Non-Hodgkin lymphoma in remission: Remote history of, in remission History of testicular involvement, on testosterone replacement (6) FRANCO on CPAP: CPAP as per home settings (7) ADHD: (8) Anxiety: Continue home meds (9) DVT prophylaxis: SCDs Discharge Plan Discharge Items Reason For Visit: JASON Follow-up/Referrals: Avila Sanford DO [Primary Care Provider] - Medications and DC Order Prescriptions: No Action clonidine HCl 0.1 mg tablet 0.1 mg PO BID PRN (Reason: HTN) RF: 0 trazodone 100 mg tablet 100 mg PO HS RF: 0 lorazepam 1 mg tablet 1 mg PO DAILY PRN (Reason: Anxiety) RF: 0 testosterone 1 % (50 mg/5 gram) gel in packet 3 packet topical DAILY RF: 0 Xifaxan 550 mg tablet 550 mg PO BID RF: 0 Repatha SureClick 140 mg/mL pen injector 140 mg SUBCUT DIRECTED RF: 0 meloxicam 15 mg tablet 15 mg PO DAILY RF: 0 sulfamethoxazole-trimethoprim 800-160 mg tablet 1 tab PO BID RF: 0 dextroamphetamine-amphetamine 20 mg capsule,extended release 24hr 20 mg PO DAILY PRN (Reason: ADHD) RF: 0 hydroxyzine HCl 25 mg tablet 25 mg PO TID PRN (Reason: Anxiety) RF: 0 ergocalciferol (vitamin D2) [Vitamin D2] 1,250 mcg (50,000 unit) capsule 1,250 mcg PO WK RF: 0 dextroamphetamine-amphetamine 30 mg capsule,extended release 24hr 30 mg PO DAILY RF: 0 losartan 100 mg tablet 100 mg PO DAILY RF: 0 nebivolol [Bystolic] 10 mg tablet 10 mg PO BID RF: 0 desvenlafaxine succinate 25 mg Tablet Extended Release 24 Hr 25 mg PO DAILY RF: 0 Admission Data Admit Date/Time: 08/26/21 11:23 Attending Provider: Lela Kumra Admit Provider: Kyra Mckeon I. Primary Care Provider: Avila Sanford Other Providers: Kyra Mckeon I.
== END 2021-08-27 14:45 | disposition home or self-care (01) | DRG 684 ==
LOC: ED 09:12 → 2W 11:23 → SUATTDRO 11:23 → 2W 14:01